=== PATIENT | male | born 1975 | race Caucasian/White ===

== ENCOUNTER 2017-01-04 15:41 | Emergency (ER) | payer SELFPAY ==
[~2017-01-04] VITALS: Ht 165.1 cm; Wt 75.0 kg
[2017-01-04] MEDS ORDERED: MORPHINE SULFATE 4 MG/ML CPJ (NOT FOR IM USE) IV STA (16:31)
[2017-01-04] MEDS ORDERED: ONDANSETRON HCL 4MG/2ML VIAL IV STA (16:31)
[2017-01-04] MEDS ORDERED: SODIUM CHLORIDE 0.9% 1,000 ML IV ONE (16:31)
[2017-01-04] MEDS ORDERED: KETOROLAC 30MG/ML VIAL IV ONE (18:15)
[2017-01-04 18:48] VITALS: BP 164/99
[2017-01-04] MEDS ORDERED: BACITRACIN ZINC OINT UDPKT TOP ONE (19:30)
== END 2017-01-04 21:30 | disposition home or self-care (01) ==
LOC: ER 16:10
DX: M79.641 Pain in right hand (principal); M25.522 Pain in left elbow; M79.632 Pain in left forearm; R51 Headache
CPT/HCPCS: 70450; 72125; 72170; 73080; 73090; 73130; 73590; 96361; 96374; 96375; 96376; 99285; J1885; J2270; J2405; J7030; Z7610